=== PATIENT | male | born 1965 | race Hispanic/Latino ===

== ENCOUNTER → 2024-11-17 | Outpatient (REF) | payer OTHER | LOC: WCC 12:24 | PROVIDERS: ATTEND Internal Medicine Infectious Disease | DX: E11.621 Type 2 diabetes mellitus with foot ulcer (principal); L97.412 Non-pressure chronic ulcer of right heel and midfoot with fat layer exposed ==

== ENCOUNTER → 2024-11-24 | Outpatient (REF) | payer OTHER ==
[~2024-11-24] MED LIST: LIDOCAINE VISC 2% SOLN 15 ML UDC ONE
== END ==
LOC: WCC 11:15
PROVIDERS: ATTEND Internal Medicine Infectious Disease
DX: E11.621 Type 2 diabetes mellitus with foot ulcer (principal); L97.412 Non-pressure chronic ulcer of right heel and midfoot with fat layer exposed

== ENCOUNTER → 2024-12-01 | Outpatient (REF) | payer OTHER | LOC: WCC 11:05 | PROVIDERS: ATTEND Internal Medicine Infectious Disease | DX: E11.621 Type 2 diabetes mellitus with foot ulcer (principal); L97.412 Non-pressure chronic ulcer of right heel and midfoot with fat layer exposed ==

== ENCOUNTER → 2024-12-08 | Outpatient (REF) | payer OTHER | LOC: WCC 11:03 | PROVIDERS: ATTEND Internal Medicine Infectious Disease | DX: E11.621 Type 2 diabetes mellitus with foot ulcer (principal); L97.412 Non-pressure chronic ulcer of right heel and midfoot with fat layer exposed ==

== ENCOUNTER → 2024-12-15 | Outpatient (REF) | payer OTHER | LOC: WCC 14:42 | PROVIDERS: ATTEND Internal Medicine Infectious Disease | DX: E11.621 Type 2 diabetes mellitus with foot ulcer (principal); L97.412 Non-pressure chronic ulcer of right heel and midfoot with fat layer exposed ==

== ENCOUNTER → 2024-12-22 | Outpatient (REF) | payer OTHER | LOC: WCC 09:37 | PROVIDERS: ATTEND Internal Medicine Infectious Disease | DX: E11.621 Type 2 diabetes mellitus with foot ulcer (principal); L97.412 Non-pressure chronic ulcer of right heel and midfoot with fat layer exposed ==

== ENCOUNTER → 2025-01-05 | Outpatient (REF) | payer OTHER | LOC: WCC 09:48 | PROVIDERS: ATTEND Internal Medicine Infectious Disease | DX: E11.621 Type 2 diabetes mellitus with foot ulcer (principal); L97.412 Non-pressure chronic ulcer of right heel and midfoot with fat layer exposed ==

== ENCOUNTER → 2025-01-12 | Outpatient (REF) | payer OTHER | LOC: WCC 12:41 | PROVIDERS: ATTEND Internal Medicine Infectious Disease | DX: E11.621 Type 2 diabetes mellitus with foot ulcer (principal); L97.412 Non-pressure chronic ulcer of right heel and midfoot with fat layer exposed ==

== ENCOUNTER → 2025-01-14 | Outpatient (REF) | payer OTHER | LOC: RAD 11:19 | PROVIDERS: ATTEND Internal Medicine Infectious Disease | DX: E11.621 Type 2 diabetes mellitus with foot ulcer (principal); L97.412 Non-pressure chronic ulcer of right heel and midfoot with fat layer exposed ==

== ENCOUNTER → 2025-01-15 | Outpatient (REF) | payer OTHER | LOC: MRI 09:13 | PROVIDERS: ATTEND Internal Medicine Infectious Disease | DX: E11.621 Type 2 diabetes mellitus with foot ulcer (principal); L97.416 Non-pressure chronic ulcer of right heel and midfoot with bone involvement without evidence of necrosis ==

== ENCOUNTER → 2025-01-19 | Outpatient (REF) | payer OTHER | LOC: WCC 10:38 | PROVIDERS: ATTEND Internal Medicine Infectious Disease | DX: E11.621 Type 2 diabetes mellitus with foot ulcer (principal); L97.416 Non-pressure chronic ulcer of right heel and midfoot with bone involvement without evidence of necrosis | CPT/HCPCS: 87071; 87075; 87186; 87205 ==

== ENCOUNTER → 2025-01-29 | Outpatient (REF) | payer OTHER ==
[2025-01-29 17:34] LABS: BASOPHILS % 0.8 % (0.0-1.0); EOSINOPHILS % 4.2 % (0.0-6.0); LYMPHOCYTES % 26.8 % (18.0-39.1); MONOCYTES % 7.8 % (4.4-11.3); NEUTROPHILS % 60.0 % (38.7-80.0); RED CELL DISTRIBUTION WIDTH 13.0 % (11.7-14.4)
[2025-01-29 17:49] LABS: EST GLOMERULAR FILTRATION RATE 22.0 ML/MIN (>=60)
== END ==
LOC: WCC 16:41
PROVIDERS: ATTEND Internal Medicine Infectious Disease
DX: E11.621 Type 2 diabetes mellitus with foot ulcer (principal); L97.416 Non-pressure chronic ulcer of right heel and midfoot with bone involvement without evidence of necrosis; B96.89 Other specified bacterial agents as the cause of diseases classified elsewhere
CPT/HCPCS: 36415; 80053; 83036; 84134; 85025

== ENCOUNTER → 2025-02-02 | Outpatient (REF) | payer OTHER | LOC: RAD 08:09 | PROVIDERS: ATTEND Internal Medicine Infectious Disease | DX: Z01.818 Encounter for other preprocedural examination (principal); L97.416 Non-pressure chronic ulcer of right heel and midfoot with bone involvement without evidence of necrosis | CPT/HCPCS: 93925; 93970 ==

== ENCOUNTER → 2025-02-12 | Outpatient (REF) | payer OTHER | LOC: WCC 15:49 | PROVIDERS: ATTEND Internal Medicine Infectious Disease | DX: E11.621 Type 2 diabetes mellitus with foot ulcer (principal); L97.416 Non-pressure chronic ulcer of right heel and midfoot with bone involvement without evidence of necrosis ==

== ENCOUNTER → 2025-02-16 | Outpatient (REF) | payer OTHER | LOC: WCC 15:24 | PROVIDERS: ATTEND Internal Medicine Infectious Disease | DX: E11.621 Type 2 diabetes mellitus with foot ulcer (principal); L97.416 Non-pressure chronic ulcer of right heel and midfoot with bone involvement without evidence of necrosis ==

== ENCOUNTER → 2025-02-19 | Outpatient (REF) | payer OTHER | LOC: WCC 14:27 | PROVIDERS: ATTEND Internal Medicine Infectious Disease | DX: E11.621 Type 2 diabetes mellitus with foot ulcer (principal); L97.416 Non-pressure chronic ulcer of right heel and midfoot with bone involvement without evidence of necrosis ==

== ENCOUNTER → 2025-02-23 | Outpatient (REF) | payer OTHER | LOC: WCC 16:10 | PROVIDERS: ATTEND Internal Medicine Infectious Disease | DX: E11.621 Type 2 diabetes mellitus with foot ulcer (principal); L97.416 Non-pressure chronic ulcer of right heel and midfoot with bone involvement without evidence of necrosis ==

== ENCOUNTER → 2025-02-26 | Outpatient (REF) | payer OTHER | LOC: WCC 15:31 | PROVIDERS: ATTEND Internal Medicine Infectious Disease | DX: E11.621 Type 2 diabetes mellitus with foot ulcer (principal); L97.416 Non-pressure chronic ulcer of right heel and midfoot with bone involvement without evidence of necrosis ==

== ENCOUNTER → 2025-03-05 | Outpatient (REF) | payer OTHER | LOC: WCC 16:23 | PROVIDERS: ATTEND Internal Medicine Infectious Disease | DX: E11.621 Type 2 diabetes mellitus with foot ulcer (principal); L97.416 Non-pressure chronic ulcer of right heel and midfoot with bone involvement without evidence of necrosis; L97.412 Non-pressure chronic ulcer of right heel and midfoot with fat layer exposed; S90.821A Blister (nonthermal), right foot, initial encounter ==

== ENCOUNTER → 2025-03-09 | Outpatient (REF) | payer OTHER | LOC: WCC 15:41 | PROVIDERS: ATTEND Internal Medicine Infectious Disease | DX: E11.621 Type 2 diabetes mellitus with foot ulcer (principal); L97.416 Non-pressure chronic ulcer of right heel and midfoot with bone involvement without evidence of necrosis; L97.412 Non-pressure chronic ulcer of right heel and midfoot with fat layer exposed; S90.812A Abrasion, left foot, initial encounter ==

== ENCOUNTER → 2025-03-19 | Outpatient (REF) | payer OTHER | LOC: WCC 15:40 | PROVIDERS: ATTEND Internal Medicine Infectious Disease | DX: E11.621 Type 2 diabetes mellitus with foot ulcer (principal); L97.416 Non-pressure chronic ulcer of right heel and midfoot with bone involvement without evidence of necrosis; L97.412 Non-pressure chronic ulcer of right heel and midfoot with fat layer exposed; S90.821A Blister (nonthermal), right foot, initial encounter ==

== ENCOUNTER → 2025-03-26 | Outpatient (REF) | payer OTHER | LOC: WCC 15:09 | PROVIDERS: ATTEND Internal Medicine Infectious Disease | DX: E11.621 Type 2 diabetes mellitus with foot ulcer (principal); L97.416 Non-pressure chronic ulcer of right heel and midfoot with bone involvement without evidence of necrosis; S90.821A Blister (nonthermal), right foot, initial encounter ==